=== PATIENT | female | born 1965 | race Caucasian/White ===

== ENCOUNTER 2016-08-18 22:02 | Emergency (ER) | payer BC, OTHER ==
[~2016-08-18] VITALS: Ht 170.2 cm; Wt 101.1 kg
[~2016-08-18 22:02] MED LIST: ACIDCAP17 PO; PROM25SU8 PO; [UNRECOGNIZED DRUG - OTHER] OR
[2016-08-18 22:03] VITALS: BP 164/103; PULSE 76; RESP 18; TEMP 97.5; O2SAT 96
[2016-08-18] MEDS ORDERED: ZOFR4TAB PO (22:25)
[2016-08-18] MEDS ORDERED: SUMA100T2 PO (22:25)
[2016-08-18] MEDS ORDERED: ONDANSETRON ODT 4 MG TAB PO ONE (22:30)
[2016-08-18] MEDS ORDERED: SUMAtriptan SUCCINATE 25 MG TAB PO ONE (22:30)
--- NOTE | 2016-08-18 22:30 | PD ---
HPI Chief Complaint: Headache Time Seen by Provider: 22:14 Travel History International Travel<30 days: No Contact w/Intl Traveler<30days: No Traveled to known affect area: No History of Present Illness HPI The patient was seen and examined in the presence of the nurse. This patient has long-standing history of migraine headaches. She usually gets them about once per month. She takes sumatriptan 100 mg tablet which usually takes it away in about 20 minutes. She's done this for a long time. However she has run out of medication and developed a migraine and needed to get some relief. There is no head injury or thunderclap onset. No fever. This feels like her usual migraine. She has a bilateral frontal throbbing with some nausea. Severity is moderate PFSH Past Medical History Immunizations Current: Yes Migraines: Yes (occassional immitrex po prn from pcp) Tetanus Vaccination: < 5 Years Influenza Vaccination: Yes ?: Not LMP: : 1 Para: 1 Miscarriage: 0 : 0 Past Surgical History Section: Yes Tonsillectomy: Yes Social History Alcohol Use: No Tobacco Use: No Substance Use: No Allergies-Medications (Allergen,Severity, Reaction): Coded Allergies: Oxycodone (Verified Adverse Reaction, Unknown, VOMITING, 08/18/16) Reported Meds & Prescriptions Reported Meds & Active Scripts Active Sumatriptan (Sumatriptan Succinate) 100 Mg Tab 100 Mg PO ONCE PRN If a satisfactory response has not been obtained at 2 hours, a second dose may be administered Zofran (Ondansetron HCl) 4 Mg Tab 4 Mg PO Q6HR PRN Review of Systems General / Constitutional: No: Fever Eyes: No: Visual changes HENT: Positive: Headaches Cardiovascular: No: Chest Pain or Discomfort Respiratory: No: Shortness of Breath Gastrointestinal: Positive: Nausea, No: Abdominal Pain Genitourinary: No: Dysuria Musculoskeletal: No: Pain Skin: No Rash Neurologic: Positive: Headache, No: Weakness Psychiatric: No: Depression Endocrine: No: Polydipsia Hematologic/Lymphatic: No: Easy Bruising Physical Exam Narrative GENERAL: Well-nourished, well-developed patient with headache . SKIN: Warm and dry. HEAD: Atraumatic. Normocephalic. EYES: Pupils equal and round. No scleral icterus. No injection or drainage. ENT: No nasal bleeding or discharge. Mucous membranes pink and moist. NECK: Trachea midline. No JVD. No meningeal signs CARDIOVASCULAR: Regular rate and rhythm. No murmur appreciated. RESPIRATORY: No accessory muscle use. Clear to auscultation. Breath sounds equal bilaterally. GASTROINTESTINAL: Abdomen soft, non-tender, nondistended. Hepatic and splenic margins not palpable. MUSCULOSKELETAL: No obvious deformities. No clubbing. No cyanosis. No edema. NEUROLOGICAL: Awake and alert. No obvious cranial nerve deficits. Motor grossly within normal limits. Normal speech. PSYCHIATRIC: Appropriate mood and affect; insight and judgment normal. Data Data Last Documented VS Vital Signs Date Time Temp Pulse Resp B/P Pulse Ox O2 Delivery O2 Flow Rate FiO2 08/18/16 22:15 76 18 96 Room Air 08/18/16 22:03 97.5 164/103 Orders Sumatriptan Succinate (Imitrex) (08/18/16 22:30) Ondansetron Odt (Zofran Odt) (08/18/16 22:30) [facility] Medical Decision Making Medical Screen Exam Complete: Yes Emergency Medical Condition: Yes Medical Record Reviewed: Yes Differential Diagnosis Differential diagnosis includes migraine, tension headache, cluster headache, meningitis. Narrative Course I have reviewed the patient's electronic medical record. She is not a frequent visitor to the ER. Last visit 2010 for medication side effect Patient is neurologically intact. She is having a typical migraine for her. No red flags to suggest emergent imaging is indicated. Presentation not consistent with subarachnoid hemorrhage or meningitis. She requests for sumatriptan by name. She's been taking for a long time without side effects. I reviewed some risks with her and noted her blood pressure was elevated. I asked her to check and record it daily and follow with primary care. I did give her a dose of this now and I wrote 5 on a prescription as well as some Zofran Diagnosis Primary Impression: Migraine headache Qualified Code: G43.009 - Migraine without aura and without status migrainosus , not intractable Additional Impression: Elevated blood pressure reading Additional Instructions: The patient was advised to follow up with their physician and return if they worsen. Check and record blood pressure daily Med/Other Pt SpecificInfo: Prescription(s) given Scripts Sumatriptan 100 Mg [id number] Mg PO ONCE PRN (migraine) #5 TAB Ref 0 If a satisfactory response has not been obtained at 2 hours, a second dose may be administered Prov:Ryley Acosta MD 08/18/16 Ondansetron (Zofran)4 Mg Tab4 Mg PO Q6HR PRN (NAUSEA OR VOMITING) #12 TAB Ref 0 Prov:Ryley Acosta MD 08/18/16 Disposition: 01 DISCHARGE HOME Condition: Stable Ryley Acosta MD Aug 18, 2016 22:30
[2016-08-18 23:08] VITALS: BP 150/93
[2016-08-18 23:12] VITALS: RESP 18
== END 2016-08-18 23:11 | disposition home or self-care (01) ==
LOC: PHED 22:02
DX: G43.909 Migraine, unspecified, not intractable, without status migrainosus (principal); R03.0 Elevated blood-pressure reading, without diagnosis of hypertension
CPT/HCPCS: 99283